=== PATIENT | male | born 1970 | race Two or more races ===

== ENCOUNTER 2024-11-19 09:43 | Outpatient (RCR) | payer MEDICAID, SELFPAY ==
--- NOTE | 2024-11-19 10:09 | PTNOTE_ITS ---
PT OP Initial Eval Patient Information Outpatient Physical Therapy Treatment Date: 11/19/24 Visit Reasons: Bilateral shoulder pain Medical Diagnosis: M75.81 M25.512 Treatment Dx #1: B shoulder pain Treatment Dx #2: B shoulder weakness Start of Care: 11/19/24 Date of Onset: 2 yrs ago Smoking Status Smoking Status: Former smoker Tobacco Use: Cigarette and Vapor Cigarette Years smoked: 1 Initial Assessment Subjective: Pt is 54 yr old male with Hx of L RCR x20 yrs and R x2 yrs ago and then subsequent A/S on R shoulder. Since then the strength of the R shoulder hasn't recovered. He has low pain during the day and high pain at night in both shoulders. He has 10 lb lifting, no pushing, pulling restrictions and no reachin g above the head and he was let go from work. PMH: HTN, DM Imaging: xray report of B shoulders in EMR Pt goal; to be able to reach better with less pain, reach behind the back with R. Objective: B shoulder ArOM: FF: R: 90 deg, L: 150 deg Abd: R: 83 deg, L: 135 deg ER: R: 74 deg, L: 85 deg HBB: R: L5 with pain, L: L1 R elbow AROM: Extension: full Flexion: 95 deg Strength: 3-/5 into flexion Strength: R: 3-/5, L: 3+/5 in all planes Corbett Theron: pos R Full can: pos R Empty can: pos R Assessment: Pt presents with marked B shoulder weakness R>L and decreased ROM of R shoulder consistent wtih biceps and RC tendinopathy. Pt may benefit from skilled therapy to meet goals and has poor rehab potential. 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 Ind with HEP 2. Improved R shoulder AROM behind the back to L3 with <=3/10 pain 3. Improved AROM of R shoulder to at least 115 deg FF and 130 abduction, ER to 80 deg 4. Pt will reach OH x10 in order to reach tall cabinets.? Treatment Plan 1. Manual therapy ? 2. Therex ? 3. Modalities as indicated, moist heat pack, ice, electrical stimulation, Frequency and Duration: 1-2x a week for up to 8 visits if progressing with goals. Certification Dates: 3/25/25 to 01/19/25 Procedure Charges OP PT Eval Mod Complex 30 minutes: Yes
== END 2024-11-25 23:59 | disposition home or self-care (01) ==
LOC: CPTX 09:43
PROVIDERS: PCP Nurse Practitioner Family; Referring Provider Nurse Practitioner Family; Visit Provider Nurse Practitioner Family
DX: M25.512 Pain in left shoulder (principal); M25.511 Pain in right shoulder; R53.1 Weakness; M75.81 Other shoulder lesions, right shoulder; I10 Essential (primary) hypertension; E11.9 Type 2 diabetes mellitus without complications
CPT/HCPCS: 97162

== ENCOUNTER 2024-12-25 14:00 | Outpatient (RCR) | payer MEDICAID, SELFPAY ==
--- NOTE | 2024-11-27 14:10 | PT.ODAYNRPT ---
PT Outpatient Daily Note OP Daily Note Outpatient Physical Therapy Treatment Date: 11/27/24 Visit Reasons: Bilateral shoulder pain Subjective: Same as evaluation Objective: See F/S for therex Assessment: B shoulder fatigue and weakness limits resistive therex reps with theraband Plan: Continue per POC Length of Time (minutes) of Treatment: 30 Minutes Procedure Charges Therapeutic Exercise 30 minutes: Yes
--- NOTE | 2024-12-04 14:56 | PT.ODAYNRPT ---
PT Outpatient Daily Note OP Daily Note Outpatient Physical Therapy Treatment Date: 12/04/24 Visit Reasons: Bilateral shoulder pain Subjective: Increased pain today of shoulders Objective: See F/S for therex Assessment: B shoulder fatigue and weakness limits resistive therex reps with theraband Plan: Continue per POC Length of Time (minutes) of Treatment: 30 Minutes Procedure Charges Therapeutic Exercise 30 minutes: Yes
--- NOTE | 2024-12-11 14:38 | PT.ODAYNRPT ---
PT Outpatient Daily Note OP Daily Note Outpatient Physical Therapy Treatment Date: 12/11/24 Visit Reasons: Bilateral shoulder pain Subjective: Increased pain today of shoulders Objective: See F/S for therex MHP B shoulders x5' Assessment: B shoulder fatigue and weakness limits resistive therex reps with theraband Plan: Continue per POC Length of Time (minutes) of Treatment: 30 Minutes Procedure Charges Therapeutic Exercise 30 minutes: Yes
--- NOTE | 2024-12-25 14:45 | PT.ODAYNRPT ---
PT Outpatient Daily Note OP Daily Note Outpatient Physical Therapy Treatment Date: 12/25/24 Visit Reasons: Bilateral shoulder pain Subjective: Increased pain today of shoulders Objective: See F/S for therex Assessment: B shoulder fatigue and weakness limits resistive therex reps with theraband Plan: Continue per POC Length of Time (minutes) of Treatment: 30 Minutes Procedure Charges Therapeutic Exercise 30 minutes: Yes
== END 2024-12-25 23:59 | disposition home or self-care (01) ==
LOC: CPTX 14:00
PROVIDERS: PCP Nurse Practitioner Family; Referring Provider Nurse Practitioner Family; Visit Provider Nurse Practitioner Family
DX: M25.511 Pain in right shoulder (principal); M25.512 Pain in left shoulder; R53.1 Weakness; M75.81 Other shoulder lesions, right shoulder; Z98.890 Other specified postprocedural states; I10 Essential (primary) hypertension; E11.9 Type 2 diabetes mellitus without complications
CPT/HCPCS: 97110

== ENCOUNTER 2025-01-15 15:00 | Outpatient (RCR) | payer MEDICAID, SELFPAY ==
--- NOTE | 2025-01-01 15:53 | PT.ODAYNRPT ---
PT Outpatient Daily Note OP Daily Note Outpatient Physical Therapy Treatment Date: 01/01/25 Visit Reasons: Bilateral shoulder pain Subjective: About the same pain today of shoulders Objective: See F/S for therex Assessment: B shoulder fatigue and weakness limits resistive therex reps with theraband Plan: Continue per POC Length of Time (minutes) of Treatment: 30 Minutes Procedure Charges Therapeutic Exercise 30 minutes: Yes
--- NOTE | 2025-01-08 15:46 | PT.ODAYNRPT ---
PT Outpatient Daily Note OP Daily Note Outpatient Physical Therapy Treatment Date: 01/08/25 Visit Reasons: Bilateral shoulder pain Subjective: Pt reports B shoulder pain and stiffness. Objective: Please see flow sheet for ther ex list. Assessment: Pt presents with high pain with AAROM, interventions completed within tolerable ROM. Plan: Continue with POC. Length of Time (minutes) of Treatment: 30 Minutes Procedure Charges Therapeutic Exercise 30 minutes: Yes
--- NOTE | 2025-01-15 17:40 | PT.ODS1RPT ---
PT OP Progress/Discharge Note Date of Service: 01/15/25 Progress Note/DC Note Progress Note/Discharge Note: DC Note Patient Information Visit Reasons: Bilateral shoulder pain Service Continue Service or Discharge: Discharge Discharge Date: 01/15/25 Status Subjective: The shoulders feel about the same as before therapy Objective: B shoulder AROM: FF: R: 90 deg L: 150 deg Abd: 75 deg L: 140 deg ER: 55 deg L: 90 deg HBB: R: L5 with pain L: L1 Assessment: Pt has attended the eval and 7 visits to complete the PT referral amount with limited progress. He hasn't met goals due to continued pain and isn't making progress with goals. The R shoulder ROM and strength are especially limited. Plan: D/C Procedure Charges Therapeutic Exercise 30 minutes: Yes
== END 2025-01-25 23:59 | disposition home or self-care (01) ==
LOC: CPTX 15:00
PROVIDERS: PCP Nurse Practitioner Family; Referring Provider Nurse Practitioner Family; Visit Provider Nurse Practitioner Family
DX: M25.511 Pain in right shoulder (principal); M25.512 Pain in left shoulder; R53.1 Weakness; M75.81 Other shoulder lesions, right shoulder; Z98.890 Other specified postprocedural states; I10 Essential (primary) hypertension; E11.9 Type 2 diabetes mellitus without complications
CPT/HCPCS: 97110